=== PATIENT | male | born 1960 | race Caucasian/White ===

== ENCOUNTER 2017-09-06 03:57 | Emergency (ER) | payer OTHER ==
[~2017-09-06] VITALS: Ht 182.9 cm; Wt 102.3 kg
[2017-09-06 04:00] VITALS: TEMP 97.8
[2017-09-06 04:27] LABS: BASO # 0.1 (0.0-0.2); BASO % 0.7 % (0.0-2.0); EOS # 0.1 (0.0-0.7); EOS % 1.3 % (0-4.0); GRAN # 6.2 (1.4-6.5); GRAN % 68.3 % (42.2-75.2); HEMATOCRIT 41.9 % (42.0-52.0); LYMPH % 21.6 % (20.0-51.0); MEAN CELL VOLUME 89 fl (80.0-100.0); MEAN CORPUSCULAR HEMOGLOBIN 30 pg (27.0-31.0); MEAN CORPUSCULAR HGB CONC 33 g/dl (33.0-37.0); MEAN PLATELET VOLUME 8.8 fl (7.4-10.4); MONO # 0.7 (0.1-0.6); MONO % 7.7 % (1.7-9.3); PLATELET COUNT 285 K/mm3 (130-400); RED BLOOD COUNT 4.72 M/mm3 (4.20-5.60); REDCELL DISTRIBUTION WIDTH-CV 14.3 % (11.5-14.5)
[2017-09-06 04:37] LABS: ALBUMIN 4.3 gm/dL (3.5-5.0); BILIRUBIN,TOTAL 0.3 mg/dL (0.0-1.0); CALCIUM 9.5 mg/dL (8.4-10.2); CREATININE, serum 1.23 mg/dL (0.66-1.25); POTASSIUM 4.2 mmol/L (3.4-5.0); TOTAL PROTEIN 8.6 gm/dL (6.4-8.2)
[2017-09-06] MEDS ORDERED: ULTRAM 50MG TAB50 MG (04:59)
[2017-09-06] MEDS ORDERED: LIPITOR 40MG TA40 MG PO (05:00)
[2017-09-06] MEDS ORDERED: ZOCOR 10MG10 MG (05:00)
[2017-09-06] MEDS ORDERED: PRIL40 PO (05:43)
[2017-09-06] MEDS ORDERED: LOTREL 10 MG-401 CAP PO (05:46)
[2017-09-06] MEDS ORDERED: ZOLOFT 100MG100 MG PO (05:48)
[2017-09-06 07:30] VITALS: BP 103/71; PULSE 92
== END 2017-09-06 07:35 | disposition short-term general hospital (02) ==
LOC: COL.ER 03:57
PROVIDERS: Emergency Medicine
DX: S22.49XA Multiple fractures of ribs, unspecified side, initial encounter for closed fracture (principal); S22.069A Unspecified fracture of T7-T8 vertebra, initial encounter for closed fracture; V86.69XA Passenger of other special all-terrain or other off-road motor vehicle injured in nontraffic accident, initial encounter
CPT/HCPCS: J1170; J1885; J2405; J7030; Q9967